=== PATIENT | female | born 1955 | race Caucasian/White ===

== ENCOUNTER 2022-05-20 10:46 | Outpatient (CLI) | payer OTHER ==
[2022-05-20 11:53] LABS: Hemoglobin 12.8 g/dL (12.0-15.5); Mean Corpuscular HGB CONC 32.6 g/dL (32.0-36.0); Mean Corpuscular Hemoglobin 29.6 pg (27.0-33.0); Mean Corpuscular Volume 90.8 fl (81.6-98.3); Mean Platelet Volume 9.7 fl (7.4-10.4); Platelet Count 305 10x3/uL (150-450); RBC Distribution Width 13.2 % (11.5-14.5); Red Blood Cell (RBC) Count 4.33 10x6/uL (3.90-5.03); White Blood Cell (WBC) Count 6.7 10x3/uL (3.5-10.5)
[2022-05-20 12:13] LABS: Anion Gap 14 mmol/L (10-20); BUN (Urea Nitrogen) 11 mg/dL (9.8-20.1); Calc. Creatinine Clearance 0 mL/min (70-130); Calcium 9.3 mg/dL (7.8-10.44); Carbon Dioxide 24 mmol/L (23-31); Chloride 106 mmol/L (98-107); Estimated GFR 97; Glucose 86 mg/dL (80-115); Sodium 140 mmol/L (136-145)
[2022-05-20 12:18] LABS: INR-International Normal Ratio 0.9; PTT 26.8 sec (22.0-33.0)
== END 2022-05-20 10:47 | disposition home or self-care (01) ==
LOC: LABBT 10:46
PROVIDERS: ATTEND Surgery
DX: Z01.818 Encounter for other preprocedural examination (principal); M48.062 Spinal stenosis, lumbar region with neurogenic claudication; M54.16 Radiculopathy, lumbar region
CPT/HCPCS: 80048; 85027; 85610; 85730; 93005; 93010

== ENCOUNTER 2025-02-23 09:10 | Emergency (ER) | payer MEDICARE ==
[2025-02-23] MEDS ORDERED: Dexamethasone 10 MG/ML VIAL ONE (10:02)
== END 2025-02-23 11:04 | disposition home or self-care (01) ==
LOC: ERS 09:10
DX: S20.212A Contusion of left front wall of thorax, initial encounter (principal); M54.50 Low back pain, unspecified; G89.29 Other chronic pain; M26.622 Arthralgia of left temporomandibular joint; J84.89 Other specified interstitial pulmonary diseases; I10 Essential (primary) hypertension; E78.5 Hyperlipidemia, unspecified; E03.9 Hypothyroidism, unspecified; C50.919 Malignant neoplasm of unspecified site of unspecified female breast; Z79.82 Long term (current) use of aspirin; Z79.890 Hormone replacement therapy; Z79.899 Other long term (current) drug therapy; X58.XXXA Exposure to other specified factors, initial encounter
CPT/HCPCS: 71101; J1100; J2270; 96372; 99283